=== PATIENT | female | born 1960 | race Caucasian/White ===

== ENCOUNTER → 2020-03-10 | Outpatient (CLI) | payer OTHER ==
[~2020-03-10] MED LIST: ASPIRIN CHEWABL81 MG PO; BRILINTA 90 MG90 MG PO; LIPITOR TAB 2020 MG PO; LISINOPRIL5 MG PO; METOPROLOL SUCC25 MG PO; NEXIUM40 MG PO; NITROSTAT 0.40.4 MG SL; PLAVIX 75 MG TA75 MG PO; ZANTAC150 MG PO
== END ==
LOC: HEART 5 03-03 09:00
DX: I25.10 Atherosclerotic heart disease of native coronary artery without angina pectoris (principal); I25.2 Old myocardial infarction
CPT/HCPCS: 78452; 93306; A9502; J2785

== ENCOUNTER → 2020-04-28 | Outpatient (CLI) | payer OTHER ==
[2020-04-28 08:58] LABS: BUN/CREATININE RATIO 21 (0-10)
== END ==
LOC: LAB 06:50
PROVIDERS: Internal Medicine Cardiovascular Disease
DX: I10 Essential (primary) hypertension (principal)
CPT/HCPCS: 36415; 80048

== ENCOUNTER 2021-01-17 15:10 | Emergency (ER) | payer OTHER ==
[2021-01-17] MEDS ORDERED: NAPROSYN500 MG PO (16:08)
== END 2021-01-17 16:15 | disposition home or self-care (01) ==
LOC: ER1 15:10
DX: S20.212A Contusion of left front wall of thorax, initial encounter (principal); I51.9 Heart disease, unspecified; I25.2 Old myocardial infarction; F17.200 Nicotine dependence, unspecified, uncomplicated; Z90.49 Acquired absence of other specified parts of digestive tract; X58.XXXA Exposure to other specified factors, initial encounter
CPT/HCPCS: 99283

== ENCOUNTER 2021-10-01 21:59 | Emergency (ER) | payer OTHER ==
[~2021-10-01 21:59] MED LIST changes: +NAPROSYN500 MG PO
[2021-10-01 22:50] LABS: HEMOGLOBIN 12.9 gm/dl (12.3-15.3); RED BLOOD COUNT 4.15 M/UL (4.00-5.10); WHITE BLOOD COUNT 12.7 K/UL (4.5-11.0)
[2021-10-01 23:22] LABS: BUN/CREATININE RATIO 22 (0-10)
== END 2021-10-02 00:44 | disposition left against medical advice (07) ==
LOC: ER1 21:59
PROVIDERS: Emergency Medicine
DX: I11.9 Hypertensive heart disease without heart failure (principal); R51.9 Headache, unspecified; R11.10 Vomiting, unspecified
CPT/HCPCS: 71045; 80053; 81001; 82550; 82553; 84484; 85025; 93005; 99281